=== PATIENT | female | born 1950 | race Caucasian/White ===

== ENCOUNTER 2017-02-08 14:10 | Inpatient (IN) | payer OTHER ==
[~2017-02-08] VITALS: Ht 170.2 cm; Wt 85.0 kg
[~2017-02-08 14:10] MED LIST: AUG500 PO; AUGMENTIN1 TA1 PO; LAC PO; LEVAQUIN750 MG PO; LEVOTHYROXIN0.075 M2 PO; LIPITOR20 MG PO; MEDDP PO; METFORMIN HCL500 MG PO; PLAQUENIL200 MG PO; PROTONIX40 MG PO; PROVENTIL0.09 MG/A1 INH; PULMICORT180 MCG/Ac INH; QUETIAPINE FUM100 M1 PO; REQUIP0.5 MG PO; ROBDML PO; VENLAFAXINE HYD75 MG PO; VITAMIN-D1000 IU PO; WELLBUTRIN XL300 M1 PO
[2017-02-08 15:25] LABS: BASOPHIL % 0.2 % (0-2); PLATELET COUNT 231 x10^3mcL (130-400)
[2017-02-08 15:31] LABS: RED CELL DISTRIBUTION WIDTH 16.4 % (11.5-14.5)
[2017-02-08 15:32] LABS: CALCIUM 9.7 mg/dL (8.5-10.1); CARBON DIOXIDE 27.3 mmol/L (21-32)
[2017-02-08 15:52] LABS: ALBUMIN 4.5 g/dL (3.4-5.0); BILIRUBIN TOTAL 0.5 mg/dL (0.20-1.00); C REACTIVE PROTEIN 1.7 mg/dL (<=0.9)
[2017-02-08 15:53] LABS: T3 TOTAL 1.36 ng/mL
[2017-02-08 15:56] LABS: TOTAL PROTEIN, SERUM 8.4 g/dL (6.4-8.2)
[2017-02-08 16:08] LABS: CK-MB 2.3 ng/mL (0-3.6)
[2017-02-08 16:15] LABS: ERYTHROCYTE SED RATE 29 mm/hr (0-30)
[2017-02-08 16:23] LABS: FREE T4 1.45 ng/dL (0.76-1.46)
[2017-02-08 16:31] LABS: FREE THYROXINE INDEX 4.7 ug/dL (1.4-4.5); T4(THYROXINE) 13.8 ug/dL (4.7-13.3)
[2017-02-08 17:38] VITALS: BP 131/64
[2017-02-08 17:52] LABS: MAGNESIUM 1.8 mg/dL (1.8-2.4)
[2017-02-08 19:20] VITALS: BP 143/56
[2017-02-08 20:46] LABS: microscopic required? NO
[2017-02-08 21:00] LABS: UA SPECIFIC GRAVITY >=1.030 (1.005-1.035); urine erythrocyte NEGATIVE (NEGATIVE)
[2017-02-08 22:29] LABS: AMPHETAMINE QUAL UR NONE DETECTED (NEG <=1000)
[2017-02-09 06:16] VITALS: BP 130/55
[2017-02-09 07:13] LABS: PLATELET COUNT 223 x10^3mcL (130-400)
[2017-02-09 07:15] LABS: CALCIUM 9.2 mg/dL (8.5-10.1); CARBON DIOXIDE 23.8 mmol/L (21-32); CREATININE SERUM 1.1 mg/dL (0.6-1.0); POTASSIUM SERUM 4.5 mmol/L (3.5-5.1)
[2017-02-09 07:16] LABS: BASOPHIL % 0 % (0-2); RED CELL DISTRIBUTION WIDTH 16.4 % (11.5-14.5)
[2017-02-09 09:40] VITALS: BP 125/46
[2017-02-09 13:31] VITALS: BP 91/42
[2017-02-09] MEDS ORDERED: SYNTHROID0.175 MG PO (17:33)
[2017-02-09 17:35] VITALS: BP 85/53
[2017-02-09 21:32] VITALS: BP 95/40
[2017-02-10 06:39] LABS: BASOPHIL % 0.2 % (0-2); PLATELET COUNT 148 x10^3mcL (130-400)
[2017-02-10 06:40] LABS: CALCIUM 8.3 mg/dL (8.5-10.1); CARBON DIOXIDE 26.1 mmol/L (21-32); CREATININE SERUM 1.1 mg/dL (0.6-1.0); MAGNESIUM 2.1 mg/dL (1.8-2.4); PHOSPHOROUS 3.8 mg/dL (2.5-4.9); POTASSIUM SERUM 4.3 mmol/L (3.5-5.1)
[2017-02-10 06:41] VITALS: BP 131/53
[2017-02-10 07:12] LABS: RED CELL DISTRIBUTION WIDTH 16.5 % (11.5-14.5)
[2017-02-10 09:55] VITALS: BP 122/64
[2017-02-10 11:56] VITALS: Ht 170.2 cm; Wt 85.0 kg
[2017-02-10 13:04] VITALS: BP 119/61
[2017-02-10 17:35] VITALS: BP 107/44
[2017-02-10 20:43] VITALS: BP 131/65
[2017-02-11 05:35] VITALS: BP 129/66
[2017-02-11 09:07] VITALS: BP 129/66
[2017-02-11 09:50] VITALS: BP 149/84
[2017-02-11 14:04] VITALS: BP 140/59
[2017-02-11] MEDS ORDERED: LIPITOR20 MG PO (17:27)
[2017-02-11] MEDS ORDERED: PULMICORT180 MCG/Ac INH (17:28)
[2017-02-11] MEDS ORDERED: MEDDP PO (17:29)
[2017-02-11] MEDS ORDERED: AUG500 PO (17:33)
[2017-02-11] MEDS ORDERED: ROBDML PO (17:34)
[2017-02-11 17:45] VITALS: BP 151/84
[2017-02-11 18:11] VITALS: BP 140/59
== END 2017-02-11 18:47 | disposition home or self-care (01) | DRG 190 ==
LOC: ED 14:10 → DU 16:19
PROVIDERS: Specialist; ADMIT Family Medicine
DX: J44.1 Chronic obstructive pulmonary disease with (acute) exacerbation (principal); N17.0 Acute kidney failure with tubular necrosis; D68.69 Other thrombophilia; K50.90 Crohn's disease, unspecified, without complications; F31.30 Bipolar disorder, current episode depressed, mild or moderate severity, unspecified; E11.65 Type 2 diabetes mellitus with hyperglycemia; M94.0 Chondrocostal junction syndrome [Tietze]; M32.9 Systemic lupus erythematosus, unspecified; M79.7 Fibromyalgia; I73.00 Raynaud's syndrome without gangrene; F12.10 Cannabis abuse, uncomplicated; K21.9 Gastro-esophageal reflux disease without esophagitis; G25.81 Restless legs syndrome; Z68.29 Body mass index [BMI] 29.0-29.9, adult; Z87.891 Personal history of nicotine dependence; Z79.84 Long term (current) use of oral hypoglycemic drugs
CPT/HCPCS: 36600; 83880; 84439; 94150; C9113; J0696; J1170; J1644; J1940; J2060; J2405; J2920; J2930; J7030; J7613; J7620; J7626; J7644; Q0092

== ENCOUNTER 2017-04-06 12:35 | Emergency (ER) | payer OTHER ==
[~2017-04-06] VITALS: Ht 170.2 cm; Wt 94.3 kg
[~2017-04-06 12:35] MED LIST changes: +SYNTHROID0.175 MG PO
[2017-04-06 14:18] LABS: BASOPHIL % 0.6 % (0-2); PLATELET COUNT 176 x10^3mcL (130-400)
[2017-04-06 14:19] LABS: RED CELL DISTRIBUTION WIDTH 14.9 % (11.5-14.5)
[2017-04-06 14:25] LABS: CALCIUM 8.9 mg/dL (8.5-10.1); CARBON DIOXIDE 32.8 mmol/L (21-32); CHLORIDE SERUM 105 mmol/L (98-107); CREATININE SERUM 0.9 mg/dL (0.6-1.0); GFR1 > 60 mL/min; GLUCOSE SERUM 125 mg/dL (74-106); POTASSIUM SERUM 3.9 mmol/L (3.5-5.1); SODIUM SERUM 140 mmol/L (136-145)
[2017-04-06 14:25] LABS: AMPHETAMINE QUAL UR NONE DETECTED (NEG <=1000)
[2017-04-06 14:34] LABS: ALBUMIN 3.4 g/dL (3.4-5.0); ALKALINE PHOSPHATASE 64 U/L (46-116); ALT/SGPT 27 U/L (14-59); AST/SGOT 21 U/L (15-37); BILIRUBIN TOTAL 0.4 mg/dL (0.20-1.00); TOTAL PROTEIN, SERUM 6.8 g/dL (6.4-8.2)
[2017-04-06 15:17] VITALS: BP 127/72
== END 2017-04-06 15:46 | disposition home or self-care (01) ==
LOC: ED 12:35
PROVIDERS: Emergency Medicine
DX: R60.0 Localized edema (principal); M79.7 Fibromyalgia; G43.909 Migraine, unspecified, not intractable, without status migrainosus; J44.9 Chronic obstructive pulmonary disease, unspecified
CPT/HCPCS: 36415; 83880; Q0092

== ENCOUNTER 2017-05-06 19:07 | Emergency (ER) | payer OTHER ==
[~2017-05-06] VITALS: Ht 170.2 cm; Wt 100.2 kg
[2017-05-06 21:01] VITALS: BP 147/78
== END 2017-05-06 21:01 | disposition home or self-care (01) ==
LOC: ED 19:07
DX: K08.89 Other specified disorders of teeth and supporting structures (principal); M79.7 Fibromyalgia; Z98.51 Tubal ligation status; Z88.1 Allergy status to other antibiotic agents; Z88.8 Allergy status to other drugs, medicaments and biological substances
CPT/HCPCS: J2270

== ENCOUNTER 2017-06-03 14:07 | Inpatient (IN) | payer OTHER ==
[~2017-06-03] VITALS: Ht 170.2 cm; Wt 100.7 kg
--- NOTE | 2017-06-03 15:25 | NUR ---
PT PRESENTS TO THE ED WITH THE COMPLAINT OF RIGHT FLANK PAIN WHICH RADIATES TO THE RLQ OF THE ABDOMEN. PT DENIES ANY DYSURIA. PT REPORTS HER LAST URINE VOID WAS AT APPROXIMATELY 0800 THIS AM. ABDOMEN IS SOFT AND ROUND WITH NO DISTENTION. UPON PALPATION THE PT REPORTS EXACERBATED PAIN.
[2017-06-03 16:23] LABS: UA SPECIFIC GRAVITY >=1.030 (1.005-1.035); microscopic required? YES; urine erythrocyte TRACE (NEGATIVE)
[2017-06-03 16:30] LABS: BASOPHIL % 0.4 % (0-2); PLATELET COUNT 179 x10^3mcL (130-400)
[2017-06-03 16:32] LABS: RED CELL DISTRIBUTION WIDTH 14.6 % (11.5-14.5)
[2017-06-03 16:33] LABS: CALCIUM 8.8 mg/dL (8.5-10.1); CARBON DIOXIDE 29.4 mmol/L (21-32); POTASSIUM SERUM 4.3 mmol/L (3.5-5.1)
[2017-06-03 16:37] LABS: ALBUMIN 3.9 g/dL (3.4-5.0); BILIRUBIN TOTAL 0.3 mg/dL (0.20-1.00); CHOLESTEROL/HDL RATIO 2.1; TOTAL PROTEIN, SERUM 7.5 g/dL (6.4-8.2)
[2017-06-03 16:54] LABS: T3 TOTAL 1.14 ng/mL
[2017-06-03 16:59] LABS: FREE T4 1.39 ng/dL (0.76-1.46); FREE THYROXINE INDEX 4.2 ug/dL (1.4-4.5); T4(THYROXINE) 11.4 ug/dL (4.7-13.3)
--- NOTE | 2017-06-03 18:41 | NUR ---
PT REMAINS RESTING IN A POSITION OF COMFORT IN LOW POSITIONED BED WITH SIDE RAILS UP X 2 AND CALL LIGHT WITHIN REACH. 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 VITAL SIGNS ARE STABLE.
--- NOTE | 2017-06-03 19:28 | NUR ---
REPORT CALLED TO SHAKIRA RAMIREZ TO ASSUME CARE OF PT POST TRANSFER TO TELE UNIT. SHAKIRA RAMIREZ AWARE THAT MED REC WAS UNABLE TO BE INPUT D/T RESIDENTS TRANSFER PROCESS LOCKING MED REC. PT HAS MED LIST AT BEDSIDE.
[2017-06-03 19:51] LABS: MAGNESIUM 1.8 mg/dL (1.8-2.4); PHOSPHOROUS 4.7 mg/dL (2.5-4.9)
[2017-06-03 19:58] LABS: AMPHETAMINE QUAL UR NONE DETECTED (NEG <=1000)
[2017-06-03 20:22] VITALS: BP 137/65
--- NOTE | 2017-06-03 20:22 | NUR ---
RECEIVED PATIENT FROM ED VIA GUERNEY, PATIENT ALERT AND ORIENTED FAMILY AT BEDSIDE, TELE # 14 SR, IV ACCESS TO LFA WNL, C/O PAIN TO RIGHT FLANK, WILL MEDICATE ORDERED, ORIENTED PATIENT TO ROOM AND SURROUNDINGS, BED IN LOW POSITION, BED RAILS UP X 2, CALL LIGHT WITHIN REACH, WILL ENDORSE CARE TO PRIMARY NURSE SHAKIRA RAMIREZ
--- NOTE | 2017-06-03 20:25 | NUR ---
RECEIVED PT FROM GIOVANY RAMIREZ. PT IS ALERT/ORIENTED X4. PT C/O RT FLANK PAIN. STATES IS CONSTANT. RATES THE PAIN A 10/10. WILL MEDICATE PER MD PRN ORDER. WILL CONTINUE TO MONITOR.
--- NOTE | 2017-06-03 20:32 | NUR ---
MEDICATED PT WITH DILAUDID 1 MG IVP FOR ABD PAIN. WILL CONTINUE TO MONITOR.
[2017-06-03 21:00] VITALS: BP 147/80
--- NOTE | 2017-06-03 21:18 | NUR ---
PT C/O NAUSEA, MEDICATED WITH ZOFRAN 4 MG IVP PER MD PRN ORDER. WILL CONTINUE TO MONITOR.
--- NOTE | 2017-06-03 21:44 | NUR ---
PT STATES THE PAIN IS AN 8/10. SPOKE WITH DR CARY ABOUT THE PAIN. DR CARY STATED TO ADMINISTER NORCO. MEDICATED WITH NORCO PER MD PRN ORDER.
--- NOTE | 2017-06-03 22:00 | NUR ---
PT NO C/O NAUSEA AT THIS TIME. PT WAS MEDICATED WITH ZOFRAN 4 MG IVP AT 2117 (SEE EMAR). WILL CONTINUE TO MONITOR.
--- NOTE | 2017-06-03 22:30 | NUR ---
PT STILL C/O ABD PAIN IS REFUSING PAIN MED AT THIS TIME. K PAD APPLIED TO BACK
--- NOTE | 2017-06-03 23:03 | NUR ---
PT REQUESTING HER PM DOSE OF REQUIP. THE REQUIP IS NOT ON THE EMAR. PAGE GATE TO DR CARY AND INFORMED HER OF THE ABOVE. WILL AWAIT A RESPONSE
--- NOTE | 2017-06-04 00:50 | NUR ---
PT STATES HER RT THIGH IS NUMB. PT ALSO APPEARS TO BE VERY FIDGETY SPOKE WITH DR GUILLERMO OF THE ABOVE, DR GUILLERMO STATED SHE WILL ORDER ATIVAN.
--- NOTE | 2017-06-04 01:38 | NUR ---
MEDICATED WITH ATIVAN PER MD ORDER. WILL CONTINUE TO MONITOR.
--- NOTE | 2017-06-04 02:45 | NUR ---
PT C/O RT FLANK PAIN. PAIN RATED A 9/10. MEDICATED WITH DILAUDID 1 MG IVP PER MD PRN ORDER. WILL CONTINUE TO MONITOR.
--- NOTE | 2017-06-04 04:17 | NUR ---
PT STILL C/O RT FLANK PAIN A 04/15. MEDICATED WITH NORCO PER MD PRN ORDER. INFORMED DR GUILLERMO OF THE PAIN MEDS GIVEN TO THE PT. DR GUILLERMO ORDERED MIRAPEX 0.125 PO. WILL ADMINISTER THE MIRAPEX.
--- NOTE | 2017-06-04 05:41 | NUR ---
PT STATES PAIN IS 6/10 AND IS TOLERABLE AT THIS TIME. PT APPEARS TO BE MORE RELAXED. PT WAS MEDICATED WITH NORCO AT 0341. WILL CONTINUE TO MONITOR
[2017-06-04 05:46] VITALS: BP 119/54
[2017-06-04 06:43] LABS: CALCIUM 8.4 mg/dL (8.5-10.1); CHLORIDE SERUM 107 mmol/L (98-107); CREATININE SERUM 0.8 mg/dL (0.6-1.0); GFR1 > 60 mL/min; GLUCOSE SERUM 98 mg/dL (74-106); MAGNESIUM 1.7 mg/dL (1.8-2.4); PHOSPHOROUS 3.8 mg/dL (2.5-4.9); POTASSIUM SERUM 4.4 mmol/L (3.5-5.1); SODIUM SERUM 145 mmol/L (136-145)
[2017-06-04 06:46] LABS: BASOPHIL % 0.1 % (0-2); PLATELET COUNT 176 x10^3mcL (130-400)
[2017-06-04 06:57] LABS: RED CELL DISTRIBUTION WIDTH 14.7 % (11.5-14.5)
--- NOTE | 2017-06-04 07:05 | NUR ---
PT C/O RT FLANK PAIN AND NUMBNESS TO THE RIGHT THIGH. PT STATES PAIN LEVEL IS A 10/10. MEDICATED WITH DILAUDID 1 MG IVP PER MD PRN ORDER. WILL ENDORSE TO DAY NURSE.
--- NOTE | 2017-06-04 07:30 | NUR ---
PATIENT IS IN BED, APPEARS ALERT AND ORIENTED. PER PATIENT HER ABD PAIN IS TOLERABLE AT THIS TIME. IVF INFUSING WELL TO LEFT F/A. SCD'S IN PLACE TELE 14 NSR. K-PAD TO BACK. PATIENT AWARE THAT WE ARE STRAINING ALL URINE. URINE COLOR IS ORANGE D/T THE PYRIDIUM. WILL CONTINUE TO MONITOR.
--- NOTE | 2017-06-04 07:32 | NUR ---
ALL PT CARE ENDORSED TO URI RAMIREZ
--- NOTE | 2017-06-04 08:30 | NUR ---
DR JACKSON AND MEDICAL TEAM INTO SEE PATIENT AND DISCUSS PLAN OF CARE.
[2017-06-04 09:51] VITALS: BP 128/62
--- NOTE | 2017-06-04 10:30 | NUR ---
PATIENT IS SITTING UP IN BED. C/O LOWER ABD PAIN 10/10 ON THE PAIN SCALE, PER PATIENT THE NORCO DID NOT TOUCH HER PAIN. PATIENT ALSO C/O FEELING NAUSEATED. MEDICATED WITH DILAUDID AND ZOFRAN IV BY ADITYA RAMIREZ THIS TIME. WILL MONITOR FOR EFFECT.
--- NOTE | 2017-06-04 10:34 | NUR ---
THIS REGULATORY COMPLIANCE OFFICER IS CURRENTLY COVERING FOR PT'S IV ADMINISTRATIONS: PT C/O SEVERE ABDOMINAL PAIN AND R FLANK PAIN, WELL NAUSEA AND VOMITTING. ENCOURAGED TO TAKE DEEP BREATHES AND TO REPOSITION FOR COMFORT TO NO AVAIL. PT WAS PROVIDED DILAUDID IVP PRN AND ZOFRAN IVP PRN. CALL LIGHT WITHIN REACH. WILL CONTINUE TO MONITOR
[2017-06-04 13:40] VITALS: BP 118/47
[2017-06-04] MEDS ORDERED: PLAQUENIL200 MG PO (14:14)
--- NOTE | 2017-06-04 15:41 | NUR ---
PT STATES SEVERE PAIN TO THE R FLANK AREA 10/10. ENCOURAGED TO USE KPAD THAT WAS PROVIDED, REPOSITION FOR COMFORT AND TO TAKE SLOW DEEP BREATHES. PT WAS GIVEN DILAUDID IVP PRN FOR PAIN. CALL LIGHT WITHIN REACH. AT BEDSIDE. BED IN LOWEST POSITION. WILL CONTINUE TO MONITOR
--- NOTE | 2017-06-04 15:52 | NUR ---
PATIENT REMAINS IN BED WITH AT BEDSIDE. PATIENT MOVING ABOUT IN BED, C/O LOWER RT ABD PAIN, 10/10 ON THE PAIN SCALE. HAS BEEN OOB AMBULATING TO THE BATHROOM AD [place]. PATIENT WAS MEDICATED WITH DILAUDID 1.5 MG IV BY ADITYA RAMIREZ ORDERED. WILL MONITOR FOR EFFECT.
[2017-06-04 16:47] VITALS: BP 120/39
--- NOTE | 2017-06-04 18:26 | NUR ---
PATIENT REMAINS SITTING UP IN BED, NO CHANGE IN CONDITION NOTED. IVF INFUSING WELL. PATIENT CONTINUES TO MOVE ABOUT IN BED, PER PATIENT SHE IS UNABLE TO SIT STILL. NOTED THAT WHEN NURSE IS NOT IN ROOM, PT APPEARS TO BE RESTING IN BED. WILL CONTINUE TO MONITOR.
[2017-06-04 19:40] VITALS: BP 125/63
--- NOTE | 2017-06-04 19:59 | NUR ---
ADMINISTERED PAIN MEDICATION FOR PAIN 03/15 TO ABD. PATIENT STATES THAT IT FEELS LIKE IT IS BURNING AND RADIATING UP. ALSO ADMINISTERED NAUSEA MEDICATION FOR C/O NAUSEA. ALSO ASSISTED PATIENT TO BATHROOM.
--- NOTE | 2017-06-04 20:39 | NUR ---
PATIENT STILL C/O PAIN TO BACK NOW. STATES THAT PAIN WENT FROM RIGHT SIDE TO LEFT SIDE FLANK PAIN NOW. STATES THAT HEATING PAD DOES NOT HELP. ADMINISTERED PRN PAIN MEDICATION.
--- NOTE | 2017-06-04 21:43 | NUR ---
PER PATIENT, TAKES HOME MEDICATION WELLBUTRIN 300MG IN THE MORNING. WILL NOTIFY DR. NELSON FOR CHANGE OF ORDER, REQUESTING THAT SHE TAKE THIS MEDICATION IN THE MORNING AND NOT AT NIGHT.
--- NOTE | 2017-06-05 | NUR ---
PATIENT QUIETLY RESTING IN BED AT THIS TIME. NO S/SX OF DISTRESS NOTED. ABLE TO SLEEP QUIETLY WITH MINIMAL DISTURBANCES. CALL LIGHT WITHIN REACH.
[2017-06-05 05:53] VITALS: BP 128/59
[2017-06-05 06:16] LABS: BASOPHIL % 0.4 % (0-2); RED CELL DISTRIBUTION WIDTH 14.5 % (11.5-14.5)
[2017-06-05 06:53] LABS: CALCIUM 8.3 mg/dL (8.5-10.1); CHLORIDE SERUM 106 mmol/L (98-107); CREATININE SERUM 0.7 mg/dL (0.6-1.0); GFR1 > 60 mL/min; GLUCOSE SERUM 95 mg/dL (74-106); PHOSPHOROUS 3.4 mg/dL (2.5-4.9); POTASSIUM SERUM 3.7 mmol/L (3.5-5.1); SODIUM SERUM 141 mmol/L (136-145)
[2017-06-05 07:17] LABS: PLATELET COUNT 125 x10^3mcL (130-400)
--- NOTE | 2017-06-05 07:17 | NUR ---
BEDSIDE HANDOFF, RESP EVEN AND UNLABORED. CONTINUES TO SLEEP.
[2017-06-05 10:11] VITALS: BP 135/62
--- NOTE | 2017-06-05 10:23 | NUR ---
PATIENT SLEEPING, RESPIRATIONS NOTED, COMPLAINED OF PAIN EARLIER AND MEDICATED WITH NORCO PRN, NO GRIMACING/ S/S PAIN NOTED. LUNG SOUNDS CLEAR THROUGHOUT ALL DURBIN, NO DYSPNEA NOTED. CHEST EXCURSION SYMMETRICAL. HRRR, SR, TELE 14. PULSES STRONG THROUGHOUT. SKIN CDI THROUGHOUT. BED IN LOWEST POSITION, CALL LIGHT WITHIN REACH, 2 RAILS UP.
--- NOTE | 2017-06-05 11:41 | NUR ---
accucheck performed, no insulin indicated, was sleeping, bed in lowest position, call light within reach, 2 rails up.
--- NOTE | 2017-06-05 12:28 | NUR ---
MEDICATED WITH NORCO FOR 8/10 PAIN ON RIGHT SIDE.
--- NOTE | 2017-06-05 12:48 | NUR ---
DR DALTON IN TO DO OMT, PATIENT WRITHING IN PAIN, BEDSIDE. MADE DR AWARE NORCO WAS JUST GIVEN. WILL ASSESS AFTER 1 HOUR AND GIVE DILAUDID IF CONTINUES IN PAIN.
--- NOTE | 2017-06-05 13:37 | NUR ---
PT. STATED IN SEVERE PAIN, RATED 10/10 ON RIGHT SIDE ABDOMEN. MEDICATED WITH DILUADID PRN ORDERED. WILL REASSESS PATIENT. AT BEDSIDE. BED IN LOWEST POSITION, CALL LIGHT WITHIN REACH, 2 RAILS UP.
[2017-06-05 14:16] VITALS: BP 144/54
--- NOTE | 2017-06-05 16:57 | NUR ---
PT AWAKE, ALERT, ORIENTED, STATES WAS IN 10/10 PAIN TO RIGHT ABDOMEN. MEDICATED WITH DILUADID PRN ORDERED, WILL REASSESS. BED IN LOWEST POSITION, CALL LIGHT WITHIN REACH, 2 RAILS UP.
[2017-06-05 18:19] VITALS: BP 112/56
[2017-06-05 19:10] VITALS: BP 122/59
--- NOTE | 2017-06-05 19:10 | NUR ---
RECIEVD PT AWAKE ALERT AND VERBALLY RESPONSIVE.C/O R FLANK AND ABDOMINAL PAIN 10/10 TO DULL PAIN.TORADOL 30 MG IVP ADMINISTERED.DISCUSSED PAIN MGT TONIGHT AND ADVISED/ENCOURAGED TO USE K-PAD TO BACK WELL AND AGREEABLE.COMFORT MEASURES RENDERED.BP 122/59 MMHG,HR 70,WILL CONTINUE TO MONITOR.
[2017-06-06 05:22] VITALS: BP 132/52
[2017-06-06 05:59] LABS: BASOPHIL % 0.4 % (0-2); PLATELET COUNT 130 x10^3mcL (130-400)
[2017-06-06 06:22] LABS: CALCIUM 8.3 mg/dL (8.5-10.1); CARBON DIOXIDE 29.5 mmol/L (21-32); CHLORIDE SERUM 107 mmol/L (98-107); CREATININE SERUM 0.8 mg/dL (0.6-1.0); GFR1 > 60 mL/min; GLUCOSE SERUM 119 mg/dL (74-106); MAGNESIUM 1.8 mg/dL (1.8-2.4); PHOSPHOROUS 3.5 mg/dL (2.5-4.9); POTASSIUM SERUM 3.9 mmol/L (3.5-5.1); SODIUM SERUM 141 mmol/L (136-145)
[2017-06-06 06:38] LABS: RED CELL DISTRIBUTION WIDTH 15.1 % (11.5-14.5)
--- NOTE | 2017-06-06 08:00 | NUR ---
RECEIVED PATIENT A/A/OX3. TELE#14 = SR; HR = 77. DENIED CHEST PAIN. NO RESP DSITRESS ON RA. C/O RT DELIA PAIN 05/15; PAIN RADIATED TO RT HIP AND RLE. AMBULATORY. C/O RLE NUMBNESS. ABD OBESE/SOFT. NO TENDERNESS. NO N/V NOTED. IVF OF NS 100CC/HR INFUSING WELL TO LFA. DILAUDID 1.5MG IVP GIVEN FOR DELIA PAIN. VOID FREELY VIA BRP. ALL UIRNE STRAINED. NO STONE SEEN YET. CALL LIGHT IN REACH.
--- NOTE | 2017-06-06 09:00 | NUR ---
DR. JACKSON AND MEDICAL TEAM MADE MORNING ROUND. PLAN OF CARE DISCUSSED WITH PATIENT, INCLUDED FURTHER EXAM FOR RT SIDE OF BODY PAIN. PATIENT HAS HX OF BIPOLOR. PSYCH CONSULTAION BY DR. KEITH. PATIENT AGREED WITH PLAN OF CARE.
[2017-06-06 10:35] VITALS: BP 107/65
--- NOTE | 2017-06-06 10:35 | NUR ---
C/O RT DELIA PAIN STILL ON 02/12. DILAUDID 1.5MG IVP GIVEN AT 8AM. NORCO 7.5/325 PO GIVEN. CONTINUE MONITOR.
--- NOTE | 2017-06-06 10:53 | NUR ---
ROBAXIN 500MG IVPB GIVEN.
--- NOTE | 2017-06-06 11:30 | NUR ---
SLEEPING NOW. BREATHING EVENLY.
[2017-06-06 13:45] VITALS: BP 125/57
--- NOTE | 2017-06-06 14:58 | NUR ---
C/O RT DELIA PAIN ON 01/13. NORCO 7.5/325 PO GIVEN.
--- NOTE | 2017-06-06 17:45 | NUR ---
O2 SAT 915 ON RA, IMPROVED TO 95% ON 2L VIA N/C. AWARE OF. I.S. AT BED SIDE. ENCOURAGE PATIENT TO USE I.S. 10X/HR. RT PROTOCOL.
[2017-06-06 17:50] VITALS: BP 126/80
--- NOTE | 2017-06-06 18:51 | NUR ---
CONDITION STABLE. NO SIGNIFICANT CHANGE. RT DELIA PAIN ON AND OFF. VOID VIA BRP. ALL URINE STRAINED. NO STONE SEEN. ENDORSED CARE TO NOC NURSE.
--- NOTE | 2017-06-06 19:40 | NUR ---
RECEIVED REPORT FROM DAY SHIFT RN. PT RESTING IN SEMI MARTIN'S POSITION. NO SOB ON O2 2L VIA NC. NO C/O PAIN AT THIS TIME. IV ON LFA, NS INFUSING. BED IN LOWEST POSITION. SIDE RAILS UP X2. INSTRUCTED PT TO CALL IF ASSISTANCE IS NEEDED. CALL LIGHT WITHIN REACH.
[2017-06-06 20:54] VITALS: BP 168/65
[2017-06-07 05:35] VITALS: BP 130/65
--- NOTE | 2017-06-07 07:00 | NUR ---
PT SLEPT AT LONG INTERVAL DURING SHIFT. C/O R FLANK PAIN MEDICATED WITH DILAUDID X1 AND TORADOL X1. SAFETY MEASURES MAINTAINED. ALL NEEDS ATTENDED TO. CALL LIGHT WITHIN REACH. WILL ENDORSE CONTINUITY OF CARE TO DAY SHIFT RN.
--- NOTE | 2017-06-07 08:00 | NUR ---
A/A/OX4. TELE#14 = SR; HR = 69; DENIED CHEST PAIN. BRETHING SOUND DIMINISHED ELLY, O2 SAT 97% ON 2L VIA N/C. NO RESP DISTRESS. C/O RT DELIA PAIN ON 05/15, RADIATED TO RT HIP AND RLE. DILAUDID 1.5MG IVP GIVEN. ABD OBESE/SOFT. BOWEL SOUND ACTIVE. STATED NO BM X 3 DAYS. DULCOLAX SUPP GIVEN. IVF OFNS 100CC/HR INFUSING WELL. IV SITE TO LFA INTACT. TOLERATED CCHO DIET. NO N/V. CALL LIGHT IN REACH.
[2017-06-07 08:24] LABS: TOTAL IRON BINDING CAPACITY 314 ug/dL (250-450)
[2017-06-07 08:25] LABS: BASOPHIL % 0.4 % (0-2); IRON 28 ug/dL (50-170)
[2017-06-07 08:29] LABS: PLATELET COUNT 128 x10^3mcL (130-400); RED CELL DISTRIBUTION WIDTH 15.4 % (11.5-14.5)
[2017-06-07 08:33] LABS: RED BLOOD CELLS 3.62 M/mm3 (4.10-5.10)
[2017-06-07 08:42] LABS: CALCIUM 8.4 mg/dL (8.5-10.1); CARBON DIOXIDE 30.1 mmol/L (21-32); CHLORIDE SERUM 108 mmol/L (98-107); CREATININE SERUM 0.7 mg/dL (0.6-1.0); GFR1 > 60 mL/min; GLUCOSE SERUM 101 mg/dL (74-106); MAGNESIUM 1.8 mg/dL (1.8-2.4); PHOSPHOROUS 3.2 mg/dL (2.5-4.9); POTASSIUM SERUM 3.9 mmol/L (3.5-5.1); SODIUM SERUM 143 mmol/L (136-145)
[2017-06-07 09:00] VITALS: BP 161/73
--- NOTE | 2017-06-07 09:00 | NUR ---
DR. JACKSON AND MEDICAL TEAM MADE MORNING ROUND. PLAN OF CARE DISCUSSED WITH PATIENT, INCLUDED POSSIBLE D/C HOME AFTER BM. PATIENT AGREED WITH PLAN OF CARE.
[2017-06-07] MEDS ORDERED: FLE10 PO (10:37)
--- NOTE | 2017-06-07 11:00 | NUR ---
HAD A SMALL HARD BM AFTER DULCOLAX SUPP GIVEN.
[2017-06-07 12:30] VITALS: BP 123/69
[2017-06-07] MEDS ORDERED: FLO4 PO (12:36)
[2017-06-07] MEDS ORDERED: APAP/HYDROCODON1 T13 PO (12:37)
--- NOTE | 2017-06-07 13:39 | NUR ---
C/O RT DELIA PAIN ON 01/13. NORCO 7.5/325 PO GIVEN. CONTINUE MONITOR.
--- NOTE | 2017-06-07 14:24 | NUR ---
Initial Nutrition Assessment Dx: Intractable abdominla pain PMHx: COPD,Lupus,Fibromyalgia,Reynaud's syndrome,Crohns,Bipolar disroder,IBS,Migraines and Sjorgen's PSHx: Cholecystectomy (unknown date), Hernia Repair (Umbilical hernia- unknown date), Other, Patient has had Neck surgery - unable to obtain details - patient was intubated at that time. Hysterectomy - unknown date Breast reduction surgery - unknown date Labs:06/07: B, BUN:5L, Ca:8.4L, H/H:10.3/33L,06/03:A1c:6.9H Meds:Colace, Dulcolax, Ferrous sulfae, Humulin, Mg-oxide, Protonix, NS IV, Synthroid, Vit C, Zofran Diet:CCHO PO Intake: 06/04: B:30%, L:100%, 06/05: B:30%, L:0%, 06/06: B:60%, L:100% (Av%) Ht:67in, 5'7" Wt: 222#, 100.698kg BMI:34.8kg/m2 (obesity class I) IBW:135#,61kg %IBW:164% adj bw: 157#,71kg UBW:215# 1 wks ago per pt Age:66 y/o female Food Allergies:NKFA Skin: intact Ivan: 21 Edema:None GI:active bowel sounds Last BM:06/07 Nursing Trigger: unintentional wt loss>10# in past month, admitted with potential risk diagnosis and poor PO intake>3days. Pt admitted with 2.5mm nonobstructing Left inferior Nephrolithiasis and Hematuria likely 2/2 nephrolithiasis, per H&P. Per progress note 06/06, pt in moderate distress and c/o back pain 01/13. Per bed huddle this morning, pt to be discharged today. During visit, observed pt laying in bed c/o abd pain. Pt reports poor appetite and only ate her yogurt for breakfast and a couple spoonfuls of rice and drank all her juice for lunch. Observed pt with missing teeth and pt c/o chewing dificulties but declined texture change due to pt discharging this afternoon. Problem with: N: No V:No D:No C:No Problems with: Chewing: yes, missing teeth Swallowing: No Current appetite: Poor Recent wt change:+7# %wt change:-3.25% Vitamin/Supplement use:Vitamin D Special diet at home:Regular Physical activity:Walking Education: Pt declined nutrition education at this time. Estimated Nutritional Needs Based on adjusted body weight 71kg Energy: 1775-2130kcal/d (25-30kcal/kg for maintenance) Protein: 57-71g/d (0.8-1.0g/kg for maintenance) Fluid: 1775-2130ml/d (1 ml/kcal) or per doctor Nutrition Diagnosis 1. Inadequate protein/energy intake related to missing teeth and pt c/o abd pain as evidenced by PO intake 0-100% x 7 meals, av% Intervention 1. If pt is not discharged, recommend change diet texture to mechanical chopped due to pt with missing teeth. Monitor/Evaluate Goal: PO intake at least 75% of estimated needs Monitor: PO intake, Labs, GI function F/U in 3-5 days as moderate risk:06/10-
--- NOTE | 2017-06-07 14:26 | NUR ---
1. If pt is not discharged, recommend change diet texture to mechanical chopped due to pt with missing teeth.
--- NOTE | 2017-06-07 14:50 | NUR ---
STATED RT DELIA PAIN DOWN TO 3/10. D/C TO HOME PER ORDER. INSTRUCTION GIVEN. IV D/C'D. OVER NEEDLE CATHETER INTACT. CONDITION STABLE.
[2017-06-08] MEDS ORDERED: FLO4 PO (09:26)
[2017-06-08] MEDS ORDERED: FLE10 PO (09:26)
== END 2017-06-07 14:59 | disposition home or self-care (01) | DRG 693 ==
LOC: ED 14:07 → DU 18:59
PROVIDERS: Family Medicine; Specialist; ADMIT Family Medicine
DX: N20.0 Calculus of kidney (principal); N17.0 Acute kidney failure with tubular necrosis; N39.0 Urinary tract infection, site not specified; D68.69 Other thrombophilia; F31.64 Bipolar disorder, current episode mixed, severe, with psychotic features; J44.1 Chronic obstructive pulmonary disease with (acute) exacerbation; K50.90 Crohn's disease, unspecified, without complications; F42.9 Obsessive-compulsive disorder, unspecified; E11.51 Type 2 diabetes mellitus with diabetic peripheral angiopathy without gangrene; E11.65 Type 2 diabetes mellitus with hyperglycemia; M81.0 Age-related osteoporosis without current pathological fracture; M35.00 Sjogren syndrome, unspecified; I73.00 Raynaud's syndrome without gangrene; F41.0 Panic disorder [episodic paroxysmal anxiety]; M32.9 Systemic lupus erythematosus, unspecified; G43.909 Migraine, unspecified, not intractable, without status migrainosus; R80.9 Proteinuria, unspecified; R31.9 Hematuria, unspecified; G25.81 Restless legs syndrome; K58.9 Irritable bowel syndrome, unspecified; E78.5 Hyperlipidemia, unspecified; M79.7 Fibromyalgia; Z68.32 Body mass index [BMI] 32.0-32.9, adult; Z87.891 Personal history of nicotine dependence
CPT/HCPCS: 83880; 84439; 94150; J0696; J1170; J1885; J2060; J2405; J2800; J3490; J7030; J7620; Q0092